=== PATIENT | male | born 1985 | race Caucasian/White ===

== ENCOUNTER 2016-10-11 20:15 | Observation (INO) | payer OTHER ==
[~2016-10-11] VITALS: Ht 185.4 cm; Wt 75.8 kg
[~2016-10-11 20:15] MED LIST: ACID CONTROL75 MG PO; CIPROFLOXACIN500 M1 PO; ENDOCET 5-3251 EACH PO; FLAGYL500 MG PO; FLUCONAZOLE; HYDROMORPHONE HC2 MG PO; LEXAPRO10 MG PO; MICROZIDE12.5 MG PO; NEXIUM; NEXIUM20 MG PO; NOHOMEMEDS; NORCO 5/3251 TABLET PO; OXYCODONE-ACET1 EACH; OXYCODONE5 MG PO; PROMETHAZINE HC25 M1 PO; PROTONIX40 MG PO; Phenergan PO; Prilosec PO; RANITIDINE HCL150 M1 PO; REGLAN; REGLAN5 MG PO; TYLENOL WITH C1 EACH PO; WELLBUTRIN XL300 MG PO; XANAX0.5 MG
[2016-10-11 21:04] LABS: CHLORIDE 88 mEq/L (99-109); SODIUM 137 mEq/L (136-147)
[2016-10-11 21:06] LABS: GLUCOSE 148 mg/dL (70-99)
[2016-10-11 21:07] LABS: ANION GAP 19 MEQ/L (2-14)
[2016-10-11 21:08] LABS: TOTAL BILIRUBIN 1.3 mg/dL (0.0-1.0)
[2016-10-11 21:09] LABS: ALKALINE PHOSPHATASE 113 IU/L (3-129)
[2016-10-11 21:10] LABS: GFR ESTIMATE (CALCULATED) > 59 mL/min/
[2016-10-11 21:11] LABS: UREA NITROGEN (BUN) 17 mg/dL (9-23)
[2016-10-11 21:13] LABS: HEMATOCRIT 51.7 % (38.0-50.0); MCH 31.6 PG (29.0-34.0); MCHC 37.3 G/DL (30.0-36.0); MCV 84.8 FL (86-99); RBC DIS.WIDTH-CV 11.8 % (11.8-14.6); RBC DIS.WIDTH-SD 35.9 % (39-53); WHITE BLOOD COUNT 21.8 K/uL (4.1-10.2)
[2016-10-11 21:48] LABS: MEAN PLAT.VOLUME 10.6 uM^3 (9.0-12.4); PLAT.SUFFICIENCY ADEQUATE; PLATELET COUNT 320 K/uL (156-360)
[2016-10-11 21:49] LABS: LIPASE 6 U/L (1.0-51.0)
[2016-10-12 00:13] LABS: ADD MIUA? YES; BILIRUBIN NEGATIVE; BLOOD NEGATIVE; COLOR YELLOW ((YELLOW)); GLUCOSE (STRIP) NEGATIVE; KETONES 20; LEUKOCYTES NEGATIVE; NITRITE NEGATIVE; PROTEIN (STRIP) 100; UROBILINOGEN 0.2 MG/DL (0.2-1.0)
[2016-10-12 00:16] LABS: BACTERIA RARE /HPF; EPITHELIAL CELLS RARE /HPF; MUCUS TRACE /LPF; RED BLOOD CELLS 0-5 /HPF (0-5); UCUL ADDED? NO; WHITE BLOOD CELLS 0-5 /HPF (0-5)
[2016-10-12 00:24] LABS: SPECIFIC GRAVITY 1.077 (1.000-1.030)
[2016-10-12 02:54] LABS: SERUM ETHYL ALCOHOL < 10 mg/dL
[2016-10-12 03:02] LABS: ADD MEDTOX COMMENT Y; AMPHETAMINE NEGATIVE (500 ng/mL); BARBITURATES NEGATIVE (200 ng/mL); BENZODIAZEPINES NEGATIVE (150 ng/mL); COCAINE PRESUMPTIVE POSITIVE (150 ng/mL); INTERNAL CONTROLS VALID? YES; METHADONE NEGATIVE (200 ng/mL); METHAMPHETAMINE NEGATIVE (500 ng/mL); OPIATES (MORPHINE) NEGATIVE (100 ng/mL); OXYCODONE NEGATIVE (100 ng/mL); PHENCYCLIDINE NEGATIVE (25 ng/mL); PROPOXYPHENE NEGATIVE (300 ng/mL); THC CANNABINOIDS PRESUMPTIVE POSITIVE (50 ng/mL); TRICYCLIC ANTIDEPRESSANTS NEGATIVE (300 ng/mL)
[2016-10-12 09:20] VITALS: BP 145/85
[2016-10-12 11:01] LABS: MCH 31.5 PG (29.0-34.0); MCHC 36.2 G/DL (30.0-36.0); MCV 86.9 FL (86-99); MEAN PLAT.VOLUME 10.5 uM^3 (9.0-12.4); PLATELET COUNT 227 K/uL (156-360); RBC DIS.WIDTH-CV 11.9 % (11.8-14.6); RBC DIS.WIDTH-SD 37.8 % (39-53); RED BLOOD COUNT 5.18 M/uL (4.00-5.50); WHITE BLOOD COUNT 18.8 K/uL (4.1-10.2)
[2016-10-12 11:13] LABS: INTER. NORMALIZED RATIO 1.2; PROTHROMBIN TIME 12.1 (9.2-11.2)
[2016-10-12 11:23] LABS: ALKALINE PHOSPHATASE 86 IU/L (3-129); ANION GAP 12 MEQ/L (2-14); CHLORIDE 95 MEQ/L (99-109); GLUCOSE 114 mg/dL (70-99); MAGNESIUM 1.9 mg/dl (1.3-2.7); POTASSIUM 3.4 MEQ/L (3.7-5.4); SAMPLE HEMOLYSIS CHECK 0; SAMPLE ICTERIC CHECK 0; SAMPLE LIPEMIA CHECK 0; SODIUM 133 MEQ/L (136-147); TOTAL BILIRUBIN 1.3 MG/DL (0.0-1.0); UREA NITROGEN (BUN) 9 mg/dL (9-23)
[2016-10-12 11:28] LABS: GFR ESTIMATE (CALCULATED) > 59 mL/min/
[2016-10-12 15:58] VITALS: BP 153/85
[2016-10-12 19:30] VITALS: BP 117/57
[2016-10-12 20:25] LABS: CARBON DIOXIDE (BICARBONATE) 30.3 MEQ/L (20-31)
[2016-10-12 20:30] LABS: EOSINOPHIL (%) 0 % (0-5); HEMATOCRIT 42.3 % (38.0-50.0); IMMATURE GRANULOCYTE (%) 0.3 % (0.0-0.7); IMMATURE GRANULOCYTE COUNT 0.1 K/uL; INSTRUMENT ABS NEUTROPHIL CT 8.8 K/uL; LYMPHOCYTE COUNT 4.3 K/uL (1.0-2.8); MCH 31.8 PG (29.0-34.0); MCHC 36.6 G/DL (30.0-36.0); MCV 86.7 FL (86-99); MEAN PLAT.VOLUME 10.4 uM^3 (9.0-12.4); MONOCYTE (%) 9.4 % (3-12); MONOCYTE COUNT 1.4 K/uL (0-0.8); NEUTROPHIL (%) 60.7 % (45-76); NEUTROPHIL COUNT 8.8 K/uL (1.8-6.4); PLATELET COUNT 210 K/uL (156-360); RBC DIS.WIDTH-CV 11.7 % (11.8-14.6); RBC DIS.WIDTH-SD 37.3 % (39-53); RED BLOOD COUNT 4.88 M/uL (4.00-5.50); WHITE BLOOD COUNT 14.4 K/uL (4.1-10.2)
[2016-10-12 20:55] LABS: ALKALINE PHOSPHATASE 81 IU/L (3-129); AMYLASE 53 IU/L (1-118); ANION GAP 9 MEQ/L (2-14); CHLORIDE 99 MEQ/L (99-109); GFR ESTIMATE (CALCULATED) > 59 mL/min/; GLUCOSE 112 mg/dL (70-99); LIPASE 8 U/L (1.0-51.0); POTASSIUM 3.3 MEQ/L (3.7-5.4); SAMPLE HEMOLYSIS CHECK 0; SAMPLE ICTERIC CHECK 0; SAMPLE LIPEMIA CHECK 0; SODIUM 135 MEQ/L (136-147); TOTAL BILIRUBIN 1.3 MG/DL (0.0-1.0); UREA NITROGEN (BUN) 8 mg/dL (9-23)
[2016-10-13 00:03] VITALS: BP 109/58
[2016-10-13 04:01] VITALS: BP 119/63
[2016-10-13 07:20] VITALS: BP 184/96
[2016-10-13 10:30] LABS: HEMATOCRIT 45.5 % (38.0-50.0); MCH 31.7 PG (29.0-34.0); MCHC 36.5 G/DL (30.0-36.0); MCV 86.8 FL (86-99); MEAN PLAT.VOLUME 11.2 uM^3 (9.0-12.4); PLATELET COUNT 210 K/uL (156-360); RBC DIS.WIDTH-CV 11.7 % (11.8-14.6); RBC DIS.WIDTH-SD 37.1 % (39-53); RED BLOOD COUNT 5.24 M/uL (4.00-5.50); WHITE BLOOD COUNT 12.1 K/uL (4.1-10.2)
[2016-10-13 10:43] LABS: POTASSIUM 3.2 mEq/L (3.7-5.4); SODIUM 135 mEq/L (136-147)
[2016-10-13 10:44] LABS: CHLORIDE 99 mEq/L (99-109)
[2016-10-13 10:45] LABS: GLUCOSE 109 mg/dL (70-99)
[2016-10-13 10:46] LABS: ANION GAP 12 MEQ/L (2-14)
[2016-10-13 10:49] LABS: GFR ESTIMATE (CALCULATED) > 59 mL/min/
[2016-10-13 10:50] LABS: UREA NITROGEN (BUN) 12 mg/dL (9-23)
[2016-10-13 12:17] VITALS: BP 168/86
[2016-10-13] MEDS ORDERED: ZOFRAN4 MG PO (13:12)
[2016-10-13] MEDS ORDERED: DICYCLOMINE HCL10 MG PO (13:12)
[2016-10-14] MEDS ORDERED: ZOFRAN ODT4 MG PO (14:52)
[2016-10-14] MEDS ORDERED: PERCOCET 5/31 TABLET PO (14:52)
== END 2016-10-13 15:05 | disposition home or self-care (01) ==
LOC: EME 20:15 → 5WEST 10-12 03:53 → EDOF 10-12 03:53 → 5WEST 10-12 04:27
PROVIDERS: Internal Medicine; Nurse Practitioner Adult Health; Physician Assistant; Physician Assistant Medical
DX: R11.2 Nausea with vomiting, unspecified (principal); R10.9 Unspecified abdominal pain; F12.10 Cannabis abuse, uncomplicated; M54.5 Low back pain; M19.90 Unspecified osteoarthritis, unspecified site; F17.200 Nicotine dependence, unspecified, uncomplicated; E87.6 Hypokalemia; R79.89 Other specified abnormal findings of blood chemistry; D72.829 Elevated white blood cell count, unspecified; E86.0 Dehydration; F32.9 Major depressive disorder, single episode, unspecified
CPT/HCPCS: 74177; 80048; 80053; 81003; 82150; 82803; 83605; 83690; 83735; 84999; 85025; 85027; 85610; 85730; 99281; 99285; C9113; G0378; G0480; J1200; J1885; J2405; J2765; J3010; J7030

== ENCOUNTER 2016-10-14 13:02 | Emergency (ER) | payer OTHER ==
[~2016-10-14] VITALS: Ht 185.4 cm; Wt 91.0 kg
[~2016-10-14 13:02] MED LIST changes: +DICYCLOMINE HCL10 MG PO; +ZOFRAN4 MG PO
[2016-10-14 13:42] LABS: CHLORIDE 98 mEq/L (99-109); POTASSIUM 3.3 mEq/L (3.7-5.4); SODIUM 134 mEq/L (136-147)
[2016-10-14 13:44] LABS: GLUCOSE 113 mg/dL (70-99)
[2016-10-14 13:45] LABS: ANION GAP 10 MEQ/L (2-14)
[2016-10-14 13:46] LABS: TOTAL BILIRUBIN 1.5 mg/dL (0.0-1.0)
[2016-10-14 13:47] LABS: ALKALINE PHOSPHATASE 90 IU/L (3-129)
[2016-10-14 13:48] LABS: GFR ESTIMATE (CALCULATED) > 59 mL/min/
[2016-10-14 13:49] LABS: UREA NITROGEN (BUN) 12 mg/dL (9-23)
[2016-10-14 13:51] LABS: LIPASE 7 U/L (1.0-51.0)
[2016-10-14 14:13] LABS: EOSINOPHIL (%) 0.2 % (0-5); HEMATOCRIT 46.9 % (38.0-50.0); IMMATURE GRANULOCYTE (%) 0.3 % (0.0-0.7); INSTRUMENT ABS NEUTROPHIL CT 6.6 K/uL; LYMPHOCYTE COUNT 3.6 K/uL (1.0-2.8); MCH 31.3 PG (29.0-34.0); MCHC 36.7 G/DL (30.0-36.0); MCV 85.4 FL (86-99); MEAN PLAT.VOLUME 10.7 uM^3 (9.0-12.4); MONOCYTE (%) 8.6 % (3-12); NEUTROPHIL (%) 58.8 % (45-76); NEUTROPHIL COUNT 6.6 K/uL (1.8-6.4); PLATELET COUNT 213 K/uL (156-360); RBC DIS.WIDTH-CV 11.5 % (11.8-14.6); RBC DIS.WIDTH-SD 35.8 % (39-53); RED BLOOD COUNT 5.49 M/uL (4.00-5.50); WHITE BLOOD COUNT 11.2 K/uL (4.1-10.2)
[2016-10-14 14:29] LABS: ADD MIUA? NO; BILIRUBIN NEGATIVE; BLOOD NEGATIVE; COLOR AMBER ((YELLOW)); GLUCOSE (STRIP) NEGATIVE; KETONES 20; LEUKOCYTES NEGATIVE; NITRITE NEGATIVE; PROTEIN (STRIP) 30; SPECIFIC GRAVITY 1.025 (1.000-1.030)
[2016-10-14] MEDS ORDERED: ZOFRAN ODT4 MG PO (14:52)
[2016-10-14] MEDS ORDERED: PERCOCET 5/31 TABLET PO (14:52)
[2016-10-14 15:45] VITALS: BP 132/86
== END 2016-10-14 16:13 | disposition home or self-care (01) ==
LOC: EME 13:02
PROVIDERS: Emergency Medicine
DX: R10.9 Unspecified abdominal pain (principal); R11.2 Nausea with vomiting, unspecified; I10 Essential (primary) hypertension; K21.9 Gastro-esophageal reflux disease without esophagitis; F32.9 Major depressive disorder, single episode, unspecified; F41.9 Anxiety disorder, unspecified; G89.29 Other chronic pain; M54.9 Dorsalgia, unspecified; F17.200 Nicotine dependence, unspecified, uncomplicated; Z88.5 Allergy status to narcotic agent
CPT/HCPCS: 80053; 81003; 83690; 85025; 99281; 99284; J2405; J2765; J3010; J7030

== ENCOUNTER 2016-10-21 00:41 | Emergency (ER) | payer OTHER ==
[~2016-10-21] VITALS: Ht 185.4 cm; Wt 80.2 kg
[~2016-10-21 00:41] MED LIST changes: +PERCOCET 5/31 TABLET PO; +ZOFRAN ODT4 MG PO
[2016-10-21 01:39] LABS: BASOPHIL COUNT 0.1 K/uL (0-0.1); EOSINOPHIL (%) 0.3 % (0-5); EOSINOPHIL COUNT 0.1 K/uL (0-0.3); HEMATOCRIT 44.5 % (38.0-50.0); IMMATURE GRANULOCYTE (%) 0.6 % (0.0-0.7); IMMATURE GRANULOCYTE COUNT 0.1 K/uL; INSTRUMENT ABS NEUTROPHIL CT 10.3 K/uL; LYMPHOCYTE COUNT 3.4 K/uL (1.0-2.8); MCH 30.9 PG (29.0-34.0); MCHC 35.3 G/DL (30.0-36.0); MCV 87.6 FL (86-99); MEAN PLAT.VOLUME 10.4 uM^3 (9.0-12.4); MONOCYTE (%) 4.5 % (3-12); MONOCYTE COUNT 0.7 K/uL (0-0.8); NEUTROPHIL (%) 70.8 % (45-76); NEUTROPHIL COUNT 10.3 K/uL (1.8-6.4); PLATELET COUNT 263 K/uL (156-360); RBC DIS.WIDTH-CV 11.8 % (11.8-14.6); RED BLOOD COUNT 5.08 M/uL (4.00-5.50); WHITE BLOOD COUNT 14.5 K/uL (4.1-10.2)
[2016-10-21 01:46] LABS: CHLORIDE 103 mEq/L (99-109); POTASSIUM 3.5 mEq/L (3.7-5.4); SODIUM 140 mEq/L (136-147)
[2016-10-21 01:48] LABS: GLUCOSE 150 mg/dL (70-99)
[2016-10-21 01:49] LABS: ANION GAP 12 MEQ/L (2-14)
[2016-10-21 01:52] LABS: ALKALINE PHOSPHATASE 80 IU/L (3-129); GFR ESTIMATE (CALCULATED) > 59 mL/min/; TOTAL BILIRUBIN 0.5 mg/dL (0.0-1.0)
[2016-10-21 01:55] LABS: LIPASE 10 U/L (1.0-51.0)
[2016-10-21] MEDS ORDERED: PERCOCET 5/31 TABLET PO (02:20)
[2016-10-21 02:39] LABS: UREA NITROGEN (BUN) 12 mg/dL (9-23)
[2016-10-21 03:11] VITALS: BP 154/74
== END 2016-10-21 03:10 | disposition home or self-care (01) ==
LOC: EME → EDBD 00:41 → EME 00:41
PROVIDERS: Emergency Medicine
DX: R10.32 Left lower quadrant pain (principal); I10 Essential (primary) hypertension; F17.200 Nicotine dependence, unspecified, uncomplicated
CPT/HCPCS: 80053; 81003; 83690; 85025; 93005; 99281; 99284; J2060; J2405; J3010; J7030

== ENCOUNTER 2016-12-08 18:15 | Inpatient (IN) | payer OTHER ==
[~2016-12-08] VITALS: Ht 188 cm; Wt 89.6 kg
[2016-12-08 19:19] LABS: HEMATOCRIT 52.4 % (38.0-50.0); MCH 31.3 PG (29.0-34.0); MCHC 36.6 G/DL (30.0-36.0); MCV 85.3 FL (86-99); MEAN PLAT.VOLUME 10.4 uM^3 (9.0-12.4); PLATELET COUNT 343 K/uL (156-360); RBC DIS.WIDTH-SD 37.2 % (39-53); RED BLOOD COUNT 6.14 M/uL (4.00-5.50); WHITE BLOOD COUNT 21.7 K/uL (4.1-10.2)
[2016-12-08 19:24] LABS: CHLORIDE 94 mEq/L (99-109); POTASSIUM 3.4 mEq/L (3.7-5.4); SODIUM 135 mEq/L (136-147)
[2016-12-08 19:26] LABS: GLUCOSE 127 mg/dL (70-99)
[2016-12-08 19:27] LABS: ANION GAP 14 MEQ/L (2-14)
[2016-12-08 19:28] LABS: TOTAL BILIRUBIN 1.9 mg/dL (0.0-1.0)
[2016-12-08 19:29] LABS: ALKALINE PHOSPHATASE 109 IU/L (3-129)
[2016-12-08 19:30] LABS: GFR ESTIMATE (CALCULATED) > 59 mL/min/
[2016-12-08 19:31] LABS: UREA NITROGEN (BUN) 15 mg/dL (9-23)
[2016-12-08 19:33] LABS: LIPASE 9 U/L (1.0-51.0)
[2016-12-08 20:53] LABS: ADD MIUA? YES; BILIRUBIN NEGATIVE; BLOOD NEGATIVE; COLOR YELLOW ((YELLOW)); GLUCOSE (STRIP) NEGATIVE; KETONES 5; LEUKOCYTES NEGATIVE; NITRITE NEGATIVE; PROTEIN (STRIP) 30; SPECIFIC GRAVITY 1.029 (1.000-1.030)
[2016-12-08 20:58] LABS: BACTERIA RARE /HPF; EPITHELIAL CELLS RARE /HPF; MUCUS TRACE /LPF; RED BLOOD CELLS 0-5 /HPF (0-5); UCUL ADDED? NO; WHITE BLOOD CELLS 0-5 /HPF (0-5)
[2016-12-08 21:20] LABS: CREATINE KINASE 108 IU/L (1-294)
[2016-12-08 22:57] LABS: AMPHETAMINE NEGATIVE (500 ng/mL); BARBITURATES NEGATIVE (200 ng/mL); BENZODIAZEPINES NEGATIVE (150 ng/mL); COCAINE PRESUMPTIVE POSITIVE (150 ng/mL); INTERNAL CONTROLS VALID? YES; METHADONE NEGATIVE (200 ng/mL); METHAMPHETAMINE NEGATIVE (500 ng/mL); OPIATES (MORPHINE) NEGATIVE (100 ng/mL); OXYCODONE NEGATIVE (100 ng/mL); PHENCYCLIDINE NEGATIVE (25 ng/mL); PROPOXYPHENE NEGATIVE (300 ng/mL); THC CANNABINOIDS PRESUMPTIVE POSITIVE (50 ng/mL); TRICYCLIC ANTIDEPRESSANTS NEGATIVE (300 ng/mL)
[2016-12-08 22:58] LABS: ADD MEDTOX COMMENT Y
[2016-12-08 23:21] LABS: SERUM ETHYL ALCOHOL < 10 mg/dL
[2016-12-08 23:44] VITALS: BP 138/101
[2016-12-09 05:59] LABS: EOSINOPHIL (%) 0 % (0-5); IMMATURE GRANULOCYTE (%) 0.5 % (0.0-0.7); IMMATURE GRANULOCYTE COUNT 0.1 K/uL; INSTRUMENT ABS NEUTROPHIL CT 15.3 K/uL; LYMPHOCYTE COUNT 5.8 K/uL (1.0-2.8); MCH 31.6 PG (29.0-34.0); MCHC 36.4 G/DL (30.0-36.0); MCV 86.8 FL (86-99); MEAN PLAT.VOLUME 10.7 uM^3 (9.0-12.4); MONOCYTE (%) 7.5 % (3-12); MONOCYTE COUNT 1.7 K/uL (0-0.8); NEUTROPHIL (%) 66.6 % (45-76); NEUTROPHIL COUNT 15.3 K/uL (1.8-6.4); PLATELET COUNT 335 K/uL (156-360); RBC DIS.WIDTH-CV 12.4 % (11.8-14.6); RBC DIS.WIDTH-SD 38.9 % (39-53); RED BLOOD COUNT 5.76 M/uL (4.00-5.50)
[2016-12-09 06:29] LABS: ALKALINE PHOSPHATASE 90 IU/L (3-129); ANION GAP 15 MEQ/L (2-14); CHLORIDE 91 MEQ/L (99-109); GFR ESTIMATE (CALCULATED) > 59 mL/min/; GLUCOSE 104 mg/dL (70-99); SAMPLE HEMOLYSIS CHECK 1; SAMPLE ICTERIC CHECK 0; SAMPLE LIPEMIA CHECK 0; SODIUM 132 MEQ/L (136-147); TOTAL BILIRUBIN 1.6 MG/DL (0.0-1.0); UREA NITROGEN (BUN) 16 mg/dL (9-23)
[2016-12-09 06:38] LABS: POTASSIUM 4.1 MEQ/L (3.7-5.4)
[2016-12-09 08:31] VITALS: BP 96/67
[2016-12-09 16:19] VITALS: BP 152/72
[2016-12-09 23:41] VITALS: BP 108/71
[2016-12-10 06:24] LABS: EOSINOPHIL (%) 0.8 % (0-5); EOSINOPHIL COUNT 0.1 K/uL (0-0.3); HEMATOCRIT 37.9 % (38.0-50.0); IMMATURE GRANULOCYTE (%) 0.3 % (0.0-0.7); LYMPHOCYTE COUNT 5.8 K/uL (1.0-2.8); MCH 31.1 PG (29.0-34.0); MCHC 35.4 G/DL (30.0-36.0); MCV 87.9 FL (86-99); MONOCYTE (%) 9.1 % (3-12); MONOCYTE COUNT 1.1 K/uL (0-0.8); NEUTROPHIL (%) 41.6 % (45-76); RBC DIS.WIDTH-CV 11.9 % (11.8-14.6); RBC DIS.WIDTH-SD 38.7 % (39-53)
[2016-12-10 06:25] LABS: ALKALINE PHOSPHATASE 69 IU/L (3-129); ANION GAP 7 MEQ/L (2-14); CHLORIDE 97 MEQ/L (99-109); GFR ESTIMATE (CALCULATED) > 59 mL/min/; GLUCOSE 88 mg/dL (70-99); POTASSIUM 3.3 MEQ/L (3.7-5.4); SAMPLE HEMOLYSIS CHECK 0; SAMPLE ICTERIC CHECK 0; SAMPLE LIPEMIA CHECK 0; SODIUM 132 MEQ/L (136-147); TOTAL BILIRUBIN 1.4 MG/DL (0.0-1.0); UREA NITROGEN (BUN) 19 mg/dL (9-23)
[2016-12-10 06:29] LABS: RED BLOOD COUNT 4.31 M/uL (4.00-5.50)
[2016-12-10 07:18] LABS: HEMATOLOGY COMMENT 1 SMEAR COMPATIBLE; MEAN PLAT.VOLUME 10.6 uM^3 (9.0-12.4); PLAT.SUFFICIENCY ADEQUATE
[2016-12-10 07:28] LABS: PLATELET COUNT 215 K/uL (156-360)
[2016-12-10 09:03] VITALS: BP 118/80
[2016-12-10 15:26] VITALS: BP 129/92
[2016-12-11 00:34] VITALS: BP 122/60
[2016-12-11 07:42] VITALS: BP 126/84
[2016-12-11 08:57] LABS: EOSINOPHIL (%) 0.3 % (0-5); HEMATOCRIT 40.9 % (38.0-50.0); IMMATURE GRANULOCYTE (%) 0.3 % (0.0-0.7); INSTRUMENT ABS NEUTROPHIL CT 7.6 K/uL; LYMPHOCYTE COUNT 4.5 K/uL (1.0-2.8); MCH 32.4 PG (29.0-34.0); MCHC 37.2 G/DL (30.0-36.0); MCV 87.2 FL (86-99); MEAN PLAT.VOLUME 10.4 uM^3 (9.0-12.4); MONOCYTE (%) 7.1 % (3-12); MONOCYTE COUNT 0.9 K/uL (0-0.8); NEUTROPHIL (%) 57.7 % (45-76); NEUTROPHIL COUNT 7.6 K/uL (1.8-6.4); RBC DIS.WIDTH-CV 11.9 % (11.8-14.6); RBC DIS.WIDTH-SD 38.3 % (39-53); RED BLOOD COUNT 4.69 M/uL (4.00-5.50); WHITE BLOOD COUNT 13.2 K/uL (4.1-10.2)
[2016-12-11 08:58] LABS: PLATELET COUNT 284 K/uL (156-360)
[2016-12-11 09:16] LABS: ALKALINE PHOSPHATASE 82 IU/L (3-129); ANION GAP 8 MEQ/L (2-14); CHLORIDE 94 MEQ/L (99-109); GFR ESTIMATE (CALCULATED) > 59 mL/min/; GLUCOSE 106 mg/dL (70-99); POTASSIUM 3.6 MEQ/L (3.7-5.4); SAMPLE HEMOLYSIS CHECK 0; SAMPLE ICTERIC CHECK 0; SAMPLE LIPEMIA CHECK 0; SODIUM 131 MEQ/L (136-147); TOTAL BILIRUBIN 1.3 MG/DL (0.0-1.0); UREA NITROGEN (BUN) 10 mg/dL (9-23)
[2016-12-11 15:28] VITALS: BP 120/87
[2016-12-11 23:44] VITALS: BP 120/75
[2016-12-12 05:52] LABS: EOSINOPHIL (%) 0.8 % (0-5); EOSINOPHIL COUNT 0.1 K/uL (0-0.3); HEMATOCRIT 41.2 % (38.0-50.0); IMMATURE GRANULOCYTE (%) 0.2 % (0.0-0.7); INSTRUMENT ABS NEUTROPHIL CT 3.6 K/uL; LYMPHOCYTE COUNT 5.9 K/uL (1.0-2.8); MCHC 35.4 G/DL (30.0-36.0); MCV 87.5 FL (86-99); MEAN PLAT.VOLUME 10.9 uM^3 (9.0-12.4); MONOCYTE (%) 8.1 % (3-12); MONOCYTE COUNT 0.8 K/uL (0-0.8); NEUTROPHIL (%) 34.4 % (45-76); NEUTROPHIL COUNT 3.6 K/uL (1.8-6.4); PLATELET COUNT 283 K/uL (156-360); RBC DIS.WIDTH-CV 11.9 % (11.8-14.6); RBC DIS.WIDTH-SD 38.2 % (39-53); RED BLOOD COUNT 4.71 M/uL (4.00-5.50); WHITE BLOOD COUNT 10.4 K/uL (4.1-10.2)
[2016-12-12 06:40] LABS: ALKALINE PHOSPHATASE 77 IU/L (3-129); ANION GAP 8 MEQ/L (2-14); CHLORIDE 97 MEQ/L (99-109); GFR ESTIMATE (CALCULATED) > 59 mL/min/; GLUCOSE 78 mg/dL (70-99); LIPASE 15 U/L (1.0-51.0); POTASSIUM 4.1 MEQ/L (3.7-5.4); SAMPLE HEMOLYSIS CHECK 0; SAMPLE ICTERIC CHECK 0; SAMPLE LIPEMIA CHECK 0; SODIUM 133 MEQ/L (136-147); TOTAL BILIRUBIN 0.9 MG/DL (0.0-1.0); UREA NITROGEN (BUN) 6 mg/dL (9-23)
[2016-12-12 07:53] VITALS: BP 135/85
[2016-12-12] MEDS ORDERED: ZOFRAN4 MG PO (09:38)
[2016-12-12] MEDS ORDERED: ENDOCET 5-3251 EACH PO (09:38)
[2016-12-12] MEDS ORDERED: BENTYL10 MG PO (09:42)
[2016-12-12 10:05] LABS: HBSG INDEX 0.17
[2016-12-12 10:07] LABS: ANTI-HEPATITIS A VIRUS (IGM) Nonreactive; HAV INDEX 0.21
[2016-12-12 10:09] LABS: HPCA INDEX 16.06
[2016-12-12 10:13] LABS: ANTI-HEPATITIS B CORE (IGM) Nonreactive; HBC IgM INDEX 0.09
== END 2016-12-12 11:16 | disposition home or self-care (01) | DRG 872 ==
LOC: EME 18:15 → 5SOUTH 21:53 → EDOF 21:53 → ENRESERV 21:54 → 5SOUTH 23:26
PROVIDERS: Internal Medicine; Physician Assistant; Physician Assistant Medical
DX: R65.10 Systemic inflammatory response syndrome (SIRS) of non-infectious origin without acute organ dysfunction (principal); R10.12 Left upper quadrant pain; G43.A1 Cyclical vomiting, in migraine, intractable; R79.89 Other specified abnormal findings of blood chemistry; E87.1 Hypo-osmolality and hyponatremia; Z87.19 Personal history of other diseases of the digestive system; D72.829 Elevated white blood cell count, unspecified; F12.10 Cannabis abuse, uncomplicated; R09.02 Hypoxemia; I10 Essential (primary) hypertension; G89.29 Other chronic pain; M19.90 Unspecified osteoarthritis, unspecified site; F41.8 Other specified anxiety disorders; F17.210 Nicotine dependence, cigarettes, uncomplicated; Z91.5 Personal history of self-harm
CPT/HCPCS: 74177; 78227; 80053; 80074; 81003; 82550; 83605; 83690; 84999; 85025; 85027; 87040; 99281; 99285; A9537; C9113; G0480; J1200; J1885; J2405; J2765; J2805; J3010; J3480; J7030